=== PATIENT | female | born 1950 | race Caucasian/White ===

== ENCOUNTER 2024-09-24 20:04 | Inpatient (IN) | payer MEDICARE, MEDICAID ==
[~2024-09-24] VITALS: Ht 162.6 cm; Wt 78.0 kg
[2024-09-24] MEDS: LEVETIRACETAM 1000MG PREMIX 100 ML IV ONE (21:05)
[2024-09-24] MEDS: LORAZEPAM 2MG/ML INJ IV ONE (21:05)
[2024-09-24 21:54] LABS: BASOPHILS % 0.6 % (0.0-2.0); EOSINOPHILS % 0.3 % (0.0-5.0); HEMATOCRIT. 34.1 % (36.0-48.0); HEMOGLOBIN. 11.1 g/dL (12.0-16.0); LYMPHOCYTES % 14.1 % (20.0-50.0); MEAN CORPUSCULAR HEMOGLOBIN 28.8 pg (28.0-32.0); MEAN CORPUSCULAR HGB CONC 32.6 g/dL (31.0-37.0); MEAN CORPUSCULAR VOLUME 88.1 fL (81.0-99.0); MEAN PLATELET VOLUME 9.4 fl (7.4-10.4); MONOCYTES % 3.8 % (2.0-8.0); NEUTROPHILS % 81.2 % (40.0-76.0); PLATELET 314 x1000/uL (130-400); RED BLOOD CELL COUNT 3.87 mill/uL (4.2-5.4); RED CELL DISTRIBUTION WIDTH 13.8 % (11.6-14.6); WHITE BLOOD COUNT 10.2 x1000/uL (4.5-11.0)
[2024-09-24 22:03] LABS: CHLORIDE 101 mEq/L (98-107); POTASSIUM 3.4 mEq/L (3.5-5.1); SODIUM 134 mEq/L (136-145)
[2024-09-24 22:04] LABS: CALCIUM 8.8 mg/dL (8.7-10.4); CARBON DIOXIDE 23 mEq/L (21-32)
[2024-09-24 22:05] LABS: INR 1.1; PROTHROMBIN TIME 11.4 sec (9.6-11.0)
[2024-09-24 22:09] LABS: CREATININE 0.6 mg/dL (0.6-1.0); GLUCOSE 113 mg/dL (70-105); UREA NITROGEN BLOOD 8 mg/dL (9-23)
[2024-09-24 22:15] LABS: ETHANOL BLOOD < 10 mg/dL (<10); TROPONIN I HIGH SENSITIVITY 575 ng/L (3.0-34)
[2024-09-24] MEDS: CLOPIDOGREL 75MG TABLET PO ONE (22:40)
[2024-09-24] MEDS: ASPIRIN 325MG EC TABLET PO ONE (22:40)
[2024-09-24] MEDS: IOHEXOL-350 100 ML BOTTLE ONE (23:44)
[2024-09-25 05:31] LABS: CLARITY URINE CLEAR (CLEAR); COLOR URINE YELLOW (YELLOW); GLUCOSE URINE NEGATIVE (NEGATIVE); KETONES URINE NEGATIVE (NEGATIVE); LEUKOCYTE ESTERASE URINE NEGATIVE (NEGATIVE); NITRITE URINE NEGATIVE (NEGATIVE); OCCULT BLOOD URINE NEGATIVE (NEGATIVE); PH URINE 6.5 (4.5-8.0); PROTEIN URINE NEGATIVE (NEGATIVE); SPECIFIC GRAVITY URINE 1.014 (1.005-1.030); UROBILINOGEN URINE 0.2 E.U./dL (0.2-1.0)
[2024-09-25 07:02] LABS: *AMPHETAMINES SCREEN URINE NEGATIVE (NEGATIVE); *BARBITURATES SCREEN URINE NEGATIVE (NEGATIVE); *BENZODIAZEPINES SCREEN URINE NEGATIVE (NEGATIVE); *COCAINE SCREEN URINE NEGATIVE (NEGATIVE); CANNABINOID URINE SCREEN NEGATIVE (NEGATIVE); METHADONE URINE SCREEN NEGATIVE (NEGATIVE); OPIATES URINE SCREEN NEGATIVE (NEGATIVE); PHENCYCLIDINE URINE SCREEN NEGATIVE (NEGATIVE)
[2024-09-25 07:03] LABS: ECSTASY MDMA SCREEN URINE NEGATIVE (NEGATIVE)
[2024-09-25 08:00] VITALS: BP 122/65; PULSE 71; RESP 16; TEMP 36.1; O2SAT 97
[2024-09-25 09:31] VITALS: BP 122/65; PULSE 70; RESP 16; TEMP 36.1
[2024-09-25] MEDS ORDERED: ACETAMINOPHEN 325MG TABLET PO PRN (10:30)
[2024-09-25] MEDS ORDERED: CLONIDINE 0.1MG TABLET PO PRN (10:30)
[2024-09-25] MEDS ORDERED: IPRATROPIUM/ALBUTEROL 0.5-3(2.5)MG/3ML NEB HHN PRN (10:30)
[2024-09-25] MEDS ORDERED: METH2.5T MT (10:44)
[2024-09-25] MEDS ORDERED: IBUP-2029 PO (10:44)
[2024-09-25 12:00] VITALS: BP 127/70; PULSE 77; RESP 20; TEMP 36.7; O2SAT 98
[2024-09-25 13:22] LABS: BASOPHILS % 0.6 % (0.0-2.0); EOSINOPHILS % 1.4 % (0.0-5.0); HEMATOCRIT. 36.8 % (36.0-48.0); HEMOGLOBIN. 12.1 g/dL (12.0-16.0); LYMPHOCYTES % 16.9 % (20.0-50.0); MEAN CORPUSCULAR HEMOGLOBIN 28.4 pg (28.0-32.0); MEAN CORPUSCULAR HGB CONC 32.8 g/dL (31.0-37.0); MEAN CORPUSCULAR VOLUME 86.8 fL (81.0-99.0); MEAN PLATELET VOLUME 9.4 fl (7.4-10.4); MONOCYTES % 5.5 % (2.0-8.0); NEUTROPHILS % 75.6 % (40.0-76.0); PLATELET 325 x1000/uL (130-400); RED BLOOD CELL COUNT 4.25 mill/uL (4.2-5.4); RED CELL DISTRIBUTION WIDTH 13.9 % (11.6-14.6); WHITE BLOOD COUNT 8.6 x1000/uL (4.5-11.0)
[2024-09-25] MEDS: ASPIRIN 81MG TABLET PO SCH (13:38)
[2024-09-25] MEDS: ENOXAPARIN 40MG/0.4ML SYR SUBCUT SCH (13:40)
[2024-09-25] MEDS: CLOPIDOGREL 75MG TABLET PO SCH (13:41)
[2024-09-25 13:43] LABS: CARBON DIOXIDE 27 mEq/L (21-32); CHLORIDE 103 mEq/L (98-107); POTASSIUM 3.8 mEq/L (3.5-5.1); SODIUM 139 mEq/L (136-145)
[2024-09-25 13:48] LABS: CREATININE 0.6 mg/dL (0.6-1.0); GLUCOSE 113 mg/dL (70-105); THYROID STIMULATING HORMONE 1.62 uIU/mL (0.55-4.78)
[2024-09-25 13:49] LABS: LDL CHOLESTEROL 97 mg/dL (5-100); TRIGLYCERIDE 64 mg/dL (0-150); UREA NITROGEN BLOOD 9 mg/dL (9-23)
[2024-09-25 13:50] LABS: CHOLESTEROL 140 mg/dL (<200)
[2024-09-25 13:51] LABS: HDL CHOLESTEROL 31 mg/dL (>65)
[2024-09-25 14:00] LABS: HEPATITIS B SURFACE ANTIGEN NEGATIVE (Negative)
[2024-09-25 14:22] LABS: HEPATITIS C AB NON REACTIVE (Neg) (Negative)
[2024-09-25] MEDS: LEVETIRACETAM 500MG/5ML CUP PO SCH (14:42)
[2024-09-25 16:00] VITALS: BP 138/86; PULSE 80; RESP 20; TEMP 37; O2SAT 91
[2024-09-25 17:08] LABS: TROPONIN I HIGH SENSITIVITY 925 ng/L (3.0-34)
[2024-09-25 20:00] VITALS: BP 105/58; PULSE 87; RESP 18; TEMP 36.6; O2SAT 98
[2024-09-25] MEDS: ATORVASTATIN CALCIUM 40MG TABLET PO SCH (21:12)
[2024-09-25] MEDS: HYDROCODONE/ACETAMINOPHEN 5/325MG TABLET PO PRN (21:13)
[2024-09-25 23:51] VITALS: BP 107/51; PULSE 74; RESP 18; TEMP 37; O2SAT 99
[2024-09-26 00:39] LABS: TROPONIN I HIGH SENSITIVITY 717 ng/L (3.0-34)
[2024-09-26 04:00] VITALS: BP 123/61; PULSE 76; RESP 18; TEMP 36.9; O2SAT 96
[2024-09-26] MEDS: LORAZEPAM 0.5MG TABLET PO PRN (04:26)
[2024-09-26 05:18] LABS: BASOPHILS % 0.5 % (0.0-2.0); EOSINOPHILS % 0.7 % (0.0-5.0); HEMATOCRIT. 34.2 % (36.0-48.0); HEMOGLOBIN. 11.4 g/dL (12.0-16.0); LYMPHOCYTES % 20.7 % (20.0-50.0); MEAN CORPUSCULAR HEMOGLOBIN 29.4 pg (28.0-32.0); MEAN CORPUSCULAR HGB CONC 33.2 g/dL (31.0-37.0); MEAN CORPUSCULAR VOLUME 88.4 fL (81.0-99.0); MEAN PLATELET VOLUME 9.7 fl (7.4-10.4); MONOCYTES % 5.9 % (2.0-8.0); NEUTROPHILS % 72.2 % (40.0-76.0); PLATELET 315 x1000/uL (130-400); RED BLOOD CELL COUNT 3.86 mill/uL (4.2-5.4); RED CELL DISTRIBUTION WIDTH 13.9 % (11.6-14.6)
[2024-09-26 05:35] LABS: CALCIUM 8.9 mg/dL (8.7-10.4); CHLORIDE 99 mEq/L (98-107); SODIUM 134 mEq/L (136-145)
[2024-09-26 05:36] LABS: CARBON DIOXIDE 24 mEq/L (21-32)
[2024-09-26 05:41] LABS: CREATININE 0.6 mg/dL (0.6-1.0); GLUCOSE 107 mg/dL (70-105); UREA NITROGEN BLOOD 9 mg/dL (9-23)
[2024-09-26 09:12] VITALS: BP 111/61; PULSE 77; RESP 18; TEMP 36.6; O2SAT 96
[2024-09-26] MEDS: IBUPROFEN 600MG TABLET PO PRN (09:49)
[2024-09-26 12:00] VITALS: BP 123/60; PULSE 73; RESP 20; TEMP 37.1; O2SAT 91
[2024-09-26 16:00] VITALS: BP 128/68; PULSE 73; RESP 20; TEMP 36.6; O2SAT 97
[2024-09-26] MEDS: NAPROXEN 375MG TABLET PO PRN (18:39)
[2024-09-26 19:47] VITALS: BP 103/73; PULSE 78; RESP 18; TEMP 36.4; O2SAT 98
[2024-09-26] MEDS: LEVETIRACETAM 500MG/5ML CUP PO SCH (21:12)
[2024-09-27] VITALS: BP 126/58; PULSE 76; RESP 19; TEMP 36.2; O2SAT 97
[2024-09-27 04:00] VITALS: BP 117/57; PULSE 70; RESP 19; TEMP 36.5; O2SAT 96
[2024-09-27 08:27] VITALS: BP 115/59; PULSE 73; RESP 20; TEMP 36.1; O2SAT 97
[2024-09-27 12:29] VITALS: BP 119/89; PULSE 97; RESP 18; TEMP 37.2; O2SAT 95
[2024-09-27] MEDS ORDERED: DIPHENHYDRAMINE 50MG/ML INJ IM ONE (13:30)
[2024-09-27] MEDS: DIPHENHYDRAMINE 50MG/ML VIAL IV NR (14:17)
[2024-09-27 16:22] VITALS: BP 125/62; PULSE 83; RESP 18; TEMP 36.6; O2SAT 96
[2024-09-27] MEDS: LACTULOSE 20G/30ML UDC PO NR (19:00)
[2024-09-27 20:00] VITALS: BP 133/59; PULSE 90; RESP 20; TEMP 36.8; O2SAT 98
[2024-09-27] MEDS: LACOSAMIDE 100MG TABLET PO SCH (20:05)
[2024-09-28] VITALS: BP 109/56; PULSE 78; RESP 18; TEMP 36.9; O2SAT 97
[2024-09-28 04:00] VITALS: BP 123/59; PULSE 67; RESP 18; TEMP 36.9; O2SAT 98
[2024-09-28 08:00] VITALS: BP 138/79; PULSE 86; RESP 20; TEMP 36.6; O2SAT 95
[2024-09-28] MEDS: DOCUSATE SODIUM 250MG CAPSULE PO SCH (09:32)
[2024-09-28 12:00] VITALS: BP 96/69; PULSE 86; RESP 18; TEMP 36; O2SAT 100
[2024-09-28] MEDS ORDERED: LEVETIRACETAM 1000MG PREMIX 100 ML IV SCH (18:30)
[2024-09-28] MEDS ORDERED: LACOSAMIDE 100MG/10ML ORAL SOLN GT SCH (19:30)
[2024-09-28 20:00] VITALS: BP 118/60; PULSE 83; RESP 20; TEMP 37.6; O2SAT 96
[2024-09-28] MEDS ORDERED: LEVETIRACETAM 1,500MG in NACL 100ML PREMIX IV SCH (21:00)
[2024-09-28] MEDS: LEVETIRACETAM 1000MG PREMIX 100 ML IV SCH (21:14)
[2024-09-28] MEDS: SODIUM CHLORIDE 0.9% IV SCH (22:05)
[2024-09-28] MEDS: LACOSAMIDE IV SCH (22:05)
[2024-09-29] VITALS: BP 121/64; PULSE 74; RESP 20; TEMP 36.9; O2SAT 95
[2024-09-29 02:37] LABS: CREATINE KINASE 130 IU/L (34-145)
[2024-09-29 04:00] VITALS: BP 114/54; PULSE 70; RESP 20; TEMP 37.1; O2SAT 98
[2024-09-29 08:00] VITALS: BP_SYST 100; BP_SYST 125; BP_DIAS 68; BP_DIAS 84; PULSE 60; PULSE 76; RESP 17; RESP 22; TEMP 35.8; TEMP 36.4; O2SAT 97; O2SAT 99
[2024-09-29] MEDS ORDERED: LEVETIRACETAM 1000MG PREMIX 100 ML IV SCH ×2 (09:00→09:15)
[2024-09-29 12:00] VITALS: BP 124/79; PULSE 77; RESP 17; TEMP 37.1; O2SAT 96
[2024-09-29] MEDS: DOCUSATE SODIUM 100MG CAPSULE PO PRN (15:36)
[2024-09-29 16:00] VITALS: BP 106/75; PULSE 70; RESP 17; TEMP 36.4; O2SAT 100
[2024-09-29] MEDS ORDERED: NALOXONE HCL 0.4MG/ML VIAL IV PRN (18:45)
[2024-09-29 20:00] VITALS: BP 123/58; PULSE 70; RESP 18; TEMP 36.9; O2SAT 95
[2024-09-29 21:26] LABS: CHLORIDE 99 mEq/L (98-107); POTASSIUM 3.7 mEq/L (3.5-5.1); SODIUM 137 mEq/L (136-145)
[2024-09-29 21:27] LABS: CALCIUM 8.9 mg/dL (8.7-10.4); CARBON DIOXIDE 26 mEq/L (21-32)
[2024-09-29 21:32] LABS: CREATININE 0.5 mg/dL (0.6-1.0); GLUCOSE 112 mg/dL (70-105)
[2024-09-29 21:33] LABS: ALANINE AMINOTRANSFERASE 17 IU/L (10-49); ALBUMIN 3.7 g/dL (3.2-4.8); ASPARTATE AMINOTRANSFERASE 21 IU/L (<34); CREATINE KINASE 99 IU/L (34-145); UREA NITROGEN BLOOD 13 mg/dL (9-23)
[2024-09-29 21:35] LABS: BILIRUBIN TOTAL 0.3 mg/dL (0.1-1.0); PROTEIN TOTAL 7.3 g/dL (6.0-8.3)
[2024-09-29 21:38] LABS: BASOPHILS % 0.5 % (0.0-2.0); HEMATOCRIT. 32.6 % (36.0-48.0); HEMOGLOBIN. 10.9 g/dL (12.0-16.0); LYMPHOCYTES % 20.5 % (20.0-50.0); MEAN CORPUSCULAR HEMOGLOBIN 29.3 pg (28.0-32.0); MEAN CORPUSCULAR HGB CONC 33.4 g/dL (31.0-37.0); MEAN CORPUSCULAR VOLUME 87.7 fL (81.0-99.0); MEAN PLATELET VOLUME 9.6 fl (7.4-10.4); MONOCYTES % 8.3 % (2.0-8.0); NEUTROPHILS % 68.7 % (40.0-76.0); PLATELET 359 x1000/uL (130-400); RED BLOOD CELL COUNT 3.72 mill/uL (4.2-5.4); WHITE BLOOD COUNT 10.4 x1000/uL (4.5-11.0)
[2024-09-30] VITALS (7 sets, daily range): BP systolic 105–130; BP diastolic 48–77; PULSE 70–78; RESP 18–20; TEMP 36.4–36.8; O2SAT 94–100
[2024-09-30] MEDS: BISACODYL 5MG TABLET PO PRN (06:33)
[2024-09-30] MEDS: IPRATROPIUM/ALBUTEROL 0.5-3(2.5)MG/3ML NEB HHN PRN (11:52)
[2024-09-30] MEDS: CITALOPRAM HYDROBROMIDE 10MG TABLET PO SCH (19:02)
[2024-09-30] MEDS: AMPICILLIN 2,000 MG in SODIUM CHLORIDE 0.9% 100 ML IV SCH (20:17)
[2024-09-30] MEDS: LACOSAMIDE 100MG TABLET PO SCH (21:05)
[2024-09-30] MEDS: CEFTRIAXONE 2GM/50ML 50 ML IV SCH (21:41)
[2024-09-30] MEDS: VANCOMYCIN 1.25GM/250ML IV NR (22:10)
[2024-09-30] MEDS: ONDANSETRON HCL 4MG/2ML INJ IV PRN (22:14)
[2024-10-01] VITALS (7 sets, daily range): BP systolic 110–127; BP diastolic 50–73; PULSE 62–84; RESP 18–20; TEMP 36.4–37; O2SAT 95–100
[2024-10-01] MEDS: VANCOMYCIN 500MG PREMIX 100 ML IV SCH (10:54)
[2024-10-01] MEDS: MORPHINE SULFATE 4 MG/ML INJ (FOR IV/IM USE) IV PRN (11:13)
[2024-10-01] MEDS: LACOSAMIDE 100MG TABLET PO SCH (20:27)
[2024-10-01] MEDS: LEVETIRACETAM 1500MG PREMIX 100 ML IV SCH ×2 (21:24→21:48)
[2024-10-02] VITALS: BP 115/50; PULSE 69; RESP 20; TEMP 36.7; O2SAT 97
[2024-10-02 04:00] VITALS: BP 136/53; PULSE 73; RESP 20; TEMP 36.8; O2SAT 97
[2024-10-02 08:00] VITALS: BP 121/61; PULSE 65; RESP 18; TEMP 36.6; O2SAT 94
[2024-10-02 12:00] VITALS: BP 117/63; PULSE 69; RESP 18; TEMP 36.6; O2SAT 97
[2024-10-02 16:00] VITALS: BP 120/67; PULSE 71; RESP 20; TEMP 36.6; O2SAT 98
[2024-10-02 20:00] VITALS: BP 107/42; PULSE 66; RESP 20; TEMP 37.1; O2SAT 97
[2024-10-03] VITALS: BP 113/57; PULSE 60; RESP 20; TEMP 36.7; O2SAT 97
[2024-10-03 04:00] VITALS: BP_SYST 115; BP_SYST 123; BP_DIAS 58; BP_DIAS 66; PULSE 66; PULSE 88; RESP 20; TEMP 37; TEMP 37.1; O2SAT 97
[2024-10-03 07:52] LABS: CARBON DIOXIDE 22 mEq/L (21-32); CHLORIDE 103 mEq/L (98-107); SODIUM 138 mEq/L (136-145)
[2024-10-03 07:53] LABS: CALCIUM 8.4 mg/dL (8.7-10.4)
[2024-10-03 07:58] LABS: CREATININE 0.5 mg/dL (0.6-1.0); GLUCOSE 86 mg/dL (70-105); UREA NITROGEN BLOOD 8 mg/dL (9-23)
[2024-10-03 08:00] VITALS: BP 113/55; PULSE 64; RESP 18; TEMP 36.5; O2SAT 99
[2024-10-03 12:00] VITALS: BP 120/59; PULSE 67; RESP 20; TEMP 36.7; O2SAT 99
[2024-10-03 16:00] VITALS: BP 115/69; PULSE 74; RESP 18; TEMP 36.7; O2SAT 100
[2024-10-03] MEDS: ACETAMINOPHEN 325MG TABLET PO PRN (18:04)
[2024-10-03 20:00] VITALS: BP 123/57; PULSE 65; RESP 19; TEMP 36.9; O2SAT 98
[2024-10-03] MEDS: VANCOMYCIN 750MG/150ML (BAXTER) IV SCH (23:58)
[2024-10-04] VITALS: BP 109/70; PULSE 80; RESP 19; TEMP 36.9; O2SAT 98
[2024-10-04 04:00] VITALS: BP 122/59; PULSE 62; RESP 19; TEMP 36.3; O2SAT 99
[2024-10-04 08:00] VITALS: BP 127/53; PULSE 84; RESP 18; TEMP 36.3; O2SAT 99
[2024-10-04 12:00] VITALS: BP 120/56; PULSE 71; RESP 20; TEMP 36.4; O2SAT 100
[2024-10-04 16:00] VITALS: BP 125/64; PULSE 68; RESP 20; TEMP 36.4; O2SAT 99
[2024-10-04 20:00] VITALS: BP 115/58; PULSE 66; RESP 20; TEMP 37; O2SAT 97
[2024-10-05] VITALS: BP 116/59; PULSE 60; RESP 20; TEMP 36.6; O2SAT 97
[2024-10-05 04:00] VITALS: BP 114/53; PULSE 68; RESP 20; TEMP 36.8; O2SAT 98
[2024-10-05 07:02] LABS: BASOPHILS % 0.7 % (0.0-2.0); EOSINOPHILS % 4.1 % (0.0-5.0); HEMATOCRIT. 31.7 % (36.0-48.0); HEMOGLOBIN. 10.7 g/dL (12.0-16.0); LYMPHOCYTES % 23.3 % (20.0-50.0); MEAN CORPUSCULAR HEMOGLOBIN 28.9 pg (28.0-32.0); MEAN CORPUSCULAR HGB CONC 33.7 g/dL (31.0-37.0); MEAN CORPUSCULAR VOLUME 85.9 fL (81.0-99.0); MEAN PLATELET VOLUME 9.2 fl (7.4-10.4); MONOCYTES % 6.6 % (2.0-8.0); NEUTROPHILS % 65.3 % (40.0-76.0); PLATELET 345 x1000/uL (130-400); RED CELL DISTRIBUTION WIDTH 13.8 % (11.6-14.6); WHITE BLOOD COUNT 8.1 x1000/uL (4.5-11.0)
[2024-10-05 07:10] LABS: CHLORIDE 107 mEq/L (98-107); POTASSIUM 3.3 mEq/L (3.5-5.1); SODIUM 141 mEq/L (136-145)
[2024-10-05 07:11] LABS: CALCIUM 8.3 mg/dL (8.7-10.4); CARBON DIOXIDE 26 mEq/L (21-32)
[2024-10-05 07:16] LABS: CREATININE 0.4 mg/dL (0.6-1.0); GLUCOSE 104 mg/dL (70-105)
[2024-10-05 07:31] LABS: UREA NITROGEN BLOOD < 5 mg/dL (9-23)
[2024-10-05 08:41] VITALS: BP 136/56; PULSE 68; RESP 20; TEMP 36.6; O2SAT 96
[2024-10-05 13:08] VITALS: BP 131/81; PULSE 65; RESP 20; TEMP 37.2; O2SAT 97
[2024-10-05 16:19] VITALS: BP 122/59; PULSE 66; RESP 20; TEMP 37.1; O2SAT 96
[2024-10-05] MEDS: POTASSIUM CHLORIDE 20MEQ TABLET SR PO NR (16:44)
[2024-10-05 20:00] VITALS: BP 90/57; PULSE 66; RESP 18; TEMP 36.7; O2SAT 97
[2024-10-06] VITALS (7 sets, daily range): BP systolic 105–128; BP diastolic 44–68; PULSE 55–65; RESP 18–20; TEMP 36.3–37.1; O2SAT 95–97
[2024-10-06] MEDS: LEVETIRACETAM 500MG/5ML CUP PO SCH (22:38)
[2024-10-07] VITALS: BP 124/56; PULSE 63; RESP 18; TEMP 36.5; O2SAT 97
[2024-10-07 04:00] VITALS: BP 156/66; PULSE 70; RESP 20; TEMP 36.7; O2SAT 99
[2024-10-07] MEDS ORDERED: LIDOCAINE HCL 1% 10 MG/ML 10ML VIAL ONE (07:41)
[2024-10-07 08:00] VITALS: BP 136/67; PULSE 65; TEMP 36.4; O2SAT 97
[2024-10-07 08:51] LABS: CSF TOTAL VOLUME 7.6 mL
[2024-10-07 09:25] LABS: GLUCOSE CSF 61 mg/dL (41-75)
[2024-10-07 11:34] LABS: CSF APPEARANCE CLEAR (CLEAR)
[2024-10-07 11:43] LABS: CSF WHITE BLOOD CELL 23 /cu mm (0-10)
[2024-10-07 12:00] VITALS: BP 125/64; PULSE 68; RESP 16; TEMP 37; O2SAT 98
[2024-10-07 16:00] VITALS: BP 115/58; PULSE 73; RESP 20; TEMP 36.9; O2SAT 97
[2024-10-07 20:00] VITALS: BP 109/51; PULSE 64; RESP 19; TEMP 36.2; O2SAT 99
[2024-10-08 00:21] VITALS: BP 150/69; PULSE 67; RESP 19; TEMP 36.1
[2024-10-08 04:52] VITALS: BP 118/53; PULSE 51; RESP 18; TEMP 36.2; O2SAT 97
[2024-10-08 08:00] VITALS: BP 102/48; PULSE 55; RESP 18; TEMP 36.3; O2SAT 95
[2024-10-08 12:00] VITALS: BP 110/56; PULSE 58; RESP 20; TEMP 36.4; O2SAT 96
[2024-10-08] MEDS: ACYCLOVIR INJ 750 MG in DEXT 5% WATER 100 ML IV SCH (14:34)
[2024-10-08 16:00] VITALS: BP 120/48; PULSE 60; RESP 20; TEMP 36.7; O2SAT 99
[2024-10-08 20:00] VITALS: BP 118/59; PULSE 66; RESP 20; TEMP 35.8; O2SAT 97
[2024-10-09] VITALS: BP 137/71; PULSE 64; RESP 19; TEMP 36.3; O2SAT 96
[2024-10-09 04:00] VITALS: BP 122/60; PULSE 68; RESP 19; TEMP 36.3; O2SAT 98
[2024-10-09] MEDS: ACYCLOVIR INJ 550 MG in DEXT 5% WATER 100 ML IV SCH (06:00)
[2024-10-09 08:00] VITALS: BP 141/65; PULSE 67; RESP 20; TEMP 36.6; O2SAT 96
[2024-10-09] MEDS: GADOTERATE MEGLUMINE 5 MMOL/10 ML VIAL IV ONE (09:27)
[2024-10-09 12:00] VITALS: BP 96/48; PULSE 70; RESP 18; TEMP 36.9; O2SAT 96
[2024-10-09 16:00] VITALS: BP 101/69; PULSE 97; RESP 20; TEMP 36.8; O2SAT 100
[2024-10-09 19:52] VITALS: BP 119/54; PULSE 72; RESP 18; TEMP 36.6; O2SAT 94
[2024-10-09] MEDS: LACTULOSE 20G/30ML UDC PO PRN (22:02)
[2024-10-10] VITALS (7 sets, daily range): BP systolic 109–138; BP diastolic 54–81; PULSE 52–88; RESP 18–19; TEMP 36.4–36.8; O2SAT 95–100
[2024-10-10] MEDS: NYSTATIN POWDER 15GM TOP SCH (13:54)
[2024-10-11 04:06] VITALS: BP 117/73; PULSE 78; RESP 19; TEMP 36.4; O2SAT 97
[2024-10-11] MEDS ORDERED: LIDOCAINE HCL 1% 10 MG/ML 10ML VIAL ONE ×2 (07:15→13:36)
[2024-10-11 08:16] VITALS: BP 122/79; PULSE 80; RESP 18; TEMP 36.9; O2SAT 97
[2024-10-11 12:03] VITALS: BP 126/62; PULSE 65; RESP 19; TEMP 36.9; O2SAT 96
[2024-10-11 16:27] VITALS: BP 140/68; PULSE 68; RESP 18; TEMP 36.6; O2SAT 99
[2024-10-11 17:58] VITALS: BP 128/87; PULSE 69; TEMP 97.9; O2SAT 98
[2024-10-11 20:00] VITALS: BP 130/62; PULSE 68; RESP 17; TEMP 36.3; O2SAT 98
[2024-10-11] MEDS: VANCOMYCIN 750MG PMX (XELLIA) 150 ML IV SCH (21:05)
== END 2024-10-11 22:53 | DRG 64 ==
LOC: ER 20:04 → 7WST 22:23
PROVIDERS: ADMIT Internal Medicine; ATTEND Internal Medicine
PROC: 4A00X4Z Measurement of Central Nervous Electrical Activity, External Approach (ICD-10-PCS; 2024-09-26)
PROC: 4A00X4Z Measurement of Central Nervous Electrical Activity, External Approach (ICD-10-PCS; 2024-10-01)
PROC: 009U3ZX Drainage of Spinal Canal, Percutaneous Approach, Diagnostic (ICD-10-PCS; 2024-10-07)
PROC: B01B1ZZ Fluoroscopy of Spinal Cord using Low Osmolar Contrast (ICD-10-PCS; 2024-10-07)
PROC: 02HV33Z Insertion of Infusion Device into Superior Vena Cava, Percutaneous Approach (ICD-10-PCS; principal; 2024-10-11)
PROC: B548ZZA Ultrasonography of Superior Vena Cava, Guidance (ICD-10-PCS; 2024-10-11)
DX: I63.9 Cerebral infarction, unspecified (principal); I21.A1 Myocardial infarction type 2; G81.91 Hemiplegia, unspecified affecting right dominant side; I10 Essential (primary) hypertension; D64.9 Anemia, unspecified; G24.9 Dystonia, unspecified; Z96.653 Presence of artificial knee joint, bilateral; E87.6 Hypokalemia; B37.9 Candidiasis, unspecified; G40.901 Epilepsy, unspecified, not intractable, with status epilepticus; M54.9 Dorsalgia, unspecified; D72.829 Elevated white blood cell count, unspecified; R32 Unspecified urinary incontinence; Z79.899 Other long term (current) drug therapy; Z79.82 Long term (current) use of aspirin; Z79.02 Long term (current) use of antithrombotics/antiplatelets; M06.9 Rheumatoid arthritis, unspecified
CPT/HCPCS: 36415; 36573; 62328; 70496; 70498; 70544; 70551; 70552; 71045; 72141; 72146; 72148; 80048; 80053; 80061; 80202; 80305; 80320; 80339; 81003; 82542; 82550; 82945; 82962; 83036; 83880; 84145; 84157; 84443; 84484; 85025; 86635; 86705; 87070; 87340; 87529; 87899; 93005; 93306; 93971; 94070; 94640; 94664; 95816; 97110; 97112; 97163; 97166; 97530; 99291; A4606; A9577; C1725; C1893; J0133; J0290; J0696; J1200; J1650; J1953; J2003; J2060; J2270; J2405; J3370; J7050; J7060; Q9967; G0480

== ENCOUNTER 2024-12-25 00:39 | Inpatient (IN) | payer MEDICARE, MEDICAID ==
[~2024-12-25] VITALS: Ht 160 cm; Wt 89.8 kg
[2024-12-25] VITALS (7 sets, daily range): BP systolic 105–145; BP diastolic 60–75; PULSE 64–78; RESP 18–20; TEMP 36.1–36.8; O2SAT 97–100
[~2024-12-25 00:39] MED LIST: IBUP-2029 PO; METH2.5T MT
[2024-12-25] MEDS ORDERED: LORAZEPAM 2MG/ML INJ IV ONE ×2 (01:00→02:15)
[2024-12-25] MEDS: LORAZEPAM 2MG/ML UD SYRINGE IV NR ×2 (01:18→02:20)
[2024-12-25] MEDS: LEVETIRACETAM 500MG PREMIX 100 ML IV ONE ×2 (01:28→02:20)
[2024-12-25] MEDS: LABETALOL 5MG/ML 4ML INJ IV ONE (02:06)
[2024-12-25 02:09] LABS: BASOPHILS % 0.9 % (0.0-2.0); CHLORIDE 104 mEq/L (98-107); EOSINOPHILS % 1.7 % (0.0-5.0); HEMATOCRIT. 33.6 % (36.0-48.0); HEMOGLOBIN. 11.3 g/dL (12.0-16.0); LYMPHOCYTES % 23.5 % (20.0-50.0); MEAN CORPUSCULAR HEMOGLOBIN 28.7 pg (28.0-32.0); MEAN CORPUSCULAR HGB CONC 33.5 g/dL (31.0-37.0); MEAN CORPUSCULAR VOLUME 85.6 fL (81.0-99.0); MEAN PLATELET VOLUME 9.1 fl (7.4-10.4); MONOCYTES % 7.3 % (2.0-8.0); NEUTROPHILS % 66.6 % (40.0-76.0); PLATELET 428 x1000/uL (130-400); POTASSIUM 4.5 mEq/L (3.5-5.1); RED BLOOD CELL COUNT 3.92 mill/uL (4.2-5.4); RED CELL DISTRIBUTION WIDTH 13.8 % (11.6-14.6); SODIUM 137 mEq/L (136-145); WHITE BLOOD COUNT 11.7 x1000/uL (4.5-11.0)
[2024-12-25 02:10] LABS: CALCIUM 8.9 mg/dL (8.7-10.4); CARBON DIOXIDE 24 mEq/L (21-32)
[2024-12-25 02:15] LABS: CREATININE 0.6 mg/dL (0.6-1.0); ETHANOL BLOOD < 10 mg/dL (<10); GLUCOSE 98 mg/dL (70-105); INR 1.1; PROTHROMBIN TIME 11.4 sec (9.6-11.0); UREA NITROGEN BLOOD 17 mg/dL (9-23)
[2024-12-25 02:17] LABS: CREATINE KINASE 45 IU/L (34-145)
[2024-12-25] MEDS: IOHEXOL-350 100 ML BOTTLE ONE (02:19)
[2024-12-25 02:59] LABS: TROPONIN I HIGH SENSITIVITY 23 ng/L (3.0-34)
[2024-12-25] MEDS ORDERED: HYDROCODONE/ACETAMINOPHEN 5/325MG TABLET PO PRN (05:00)
[2024-12-25] MEDS ORDERED: ZOLPIDEM TARTRATE 5MG TABLET PO PRN (05:00)
[2024-12-25] MEDS ORDERED: ONDANSETRON HCL 4MG/2ML INJ IV PRN (05:00)
[2024-12-25] MEDS ORDERED: MORPHINE SULFATE 2 MG/ML INJ (NOT FOR IM USE) IV PRN (05:00)
[2024-12-25] MEDS ORDERED: LACO150T4 PO (05:02)
[2024-12-25] MEDS ORDERED: LEVE100023 PO (05:02)
[2024-12-25] MEDS ORDERED: ATOR-2 PO (05:02)
[2024-12-25] MEDS: SODIUM CHLORIDE 0.9% 1,000 ML IV SCH (05:31)
[2024-12-25] MEDS ORDERED: NALOXONE HCL 0.4MG/ML VIAL IV PRN (07:15)
[2024-12-25] MEDS ORDERED: LEVETIRACETAM 1,000MG in NACL 100ML PREMIX IV SCH (09:00)
[2024-12-25] MEDS: PANTOPRAZOLE SODIUM 40 MG/VIAL IV SCH (09:22)
[2024-12-25] MEDS: ENOXAPARIN 40MG/0.4ML SYR SUBCUT SCH (09:22)
[2024-12-25] MEDS: LEVETIRACETAM 1000MG PREMIX 100 ML IV SCH (09:23)
[2024-12-25] MEDS: LACOSAMIDE 100MG/10ML ORAL SOLN PO SCH (10:38)
[2024-12-25] MEDS: ACETAMINOPHEN 325MG TABLET PO PRN (10:38)
[2024-12-25] MEDS: LORAZEPAM 2MG/ML UD SYRINGE IV PRN (17:15)
[2024-12-25] MEDS: ATORVASTATIN CALCIUM 40MG TABLET PO SCH (21:05)
[2024-12-26 04:00] VITALS: BP 157/98; PULSE 89; RESP 18; TEMP 36.9; O2SAT 97
[2024-12-26 07:11] LABS: BASOPHILS % 0.7 % (0.0-2.0); EOSINOPHILS % 0.7 % (0.0-5.0); HEMOGLOBIN. 10.8 g/dL (12.0-16.0); LYMPHOCYTES % 17.8 % (20.0-50.0); MEAN CORPUSCULAR HEMOGLOBIN 28.9 pg (28.0-32.0); MEAN CORPUSCULAR HGB CONC 33.6 g/dL (31.0-37.0); MEAN PLATELET VOLUME 8.7 fl (7.4-10.4); MONOCYTES % 6.3 % (2.0-8.0); NEUTROPHILS % 74.5 % (40.0-76.0); PLATELET 390 x1000/uL (130-400); RED BLOOD CELL COUNT 3.73 mill/uL (4.2-5.4); RED CELL DISTRIBUTION WIDTH 13.8 % (11.6-14.6); WHITE BLOOD COUNT 8.3 x1000/uL (4.5-11.0)
[2024-12-26 07:48] LABS: CHLORIDE 106 mEq/L (98-107); POTASSIUM 3.7 mEq/L (3.5-5.1); SODIUM 139 mEq/L (136-145)
[2024-12-26 07:49] LABS: CALCIUM 8.5 mg/dL (8.7-10.4)
[2024-12-26 07:54] LABS: CREATININE 0.5 mg/dL (0.6-1.0); GLUCOSE 114 mg/dL (70-105); TRIGLYCERIDE 67 mg/dL (0-150); UREA NITROGEN BLOOD 6 mg/dL (9-23)
[2024-12-26 07:55] LABS: LDL CHOLESTEROL 52 mg/dL (5-100)
[2024-12-26 07:56] LABS: CHOLESTEROL 89 mg/dL (<200); HDL CHOLESTEROL 25 mg/dL (>65)
[2024-12-26 08:00] VITALS: BP 132/74; PULSE 81; RESP 18; TEMP 36.5; O2SAT 98
[2024-12-26 08:15] LABS: CARBON DIOXIDE 23 mEq/L (21-32)
[2024-12-26] MEDS: ASPIRIN 81MG EC TABLET PO SCH (09:26)
[2024-12-26 12:00] VITALS: BP 131/85; PULSE 87; RESP 20; TEMP 36.7; O2SAT 99
[2024-12-26 16:00] VITALS: BP 153/69; PULSE 69; RESP 18; TEMP 36.7; O2SAT 99
[2024-12-26 20:00] VITALS: BP 138/78; PULSE 101; RESP 20; TEMP 37.1; O2SAT 99
[2024-12-27 04:00] VITALS: BP 120/61; PULSE 84; RESP 19; TEMP 37.9; O2SAT 99
[2024-12-27 08:00] VITALS: BP 122/69; PULSE 86; RESP 16; TEMP 36.6; O2SAT 96
[2024-12-27 08:07] LABS: BASOPHILS % 0.7 % (0.0-2.0); EOSINOPHILS % 2.4 % (0.0-5.0); HEMATOCRIT. 31.3 % (36.0-48.0); HEMOGLOBIN. 10.5 g/dL (12.0-16.0); MEAN CORPUSCULAR HEMOGLOBIN 28.9 pg (28.0-32.0); MEAN CORPUSCULAR HGB CONC 33.7 g/dL (31.0-37.0); MEAN CORPUSCULAR VOLUME 85.8 fL (81.0-99.0); MEAN PLATELET VOLUME 8.7 fl (7.4-10.4); MONOCYTES % 8.5 % (2.0-8.0); NEUTROPHILS % 67.4 % (40.0-76.0); PLATELET 355 x1000/uL (130-400); RED BLOOD CELL COUNT 3.65 mill/uL (4.2-5.4); RED CELL DISTRIBUTION WIDTH 13.8 % (11.6-14.6); WHITE BLOOD COUNT 8.5 x1000/uL (4.5-11.0)
[2024-12-27 09:02] LABS: CALCIUM 8.6 mg/dL (8.7-10.4); CARBON DIOXIDE 25 mEq/L (21-32); CHLORIDE 106 mEq/L (98-107); POTASSIUM 3.7 mEq/L (3.5-5.1); SODIUM 139 mEq/L (136-145)
[2024-12-27 09:07] LABS: CREATININE 0.5 mg/dL (0.6-1.0); GLUCOSE 95 mg/dL (70-105); UREA NITROGEN BLOOD 6 mg/dL (9-23)
[2024-12-27 12:00] VITALS: BP 90/48; PULSE 56; RESP 16; TEMP 36.3; O2SAT 96
[2024-12-27 16:00] VITALS: BP 104/48; PULSE 65; RESP 18; TEMP 36.3; O2SAT 97
[2024-12-27 20:46] VITALS: BP 193/127; PULSE 69; RESP 16; TEMP 36.7; O2SAT 97
[2024-12-27] MEDS: CLONIDINE 0.1MG TABLET PO PRN (20:57)
[2024-12-27] MEDS ORDERED: LEVETIRACETAM 5MG/ML SYR IV SCH (21:00)
[2024-12-27] MEDS ORDERED: LEVETIRACETAM 1500MG PREMIX 100 ML IV SCH ×2 (21:00→21:15)
[2024-12-27] MEDS: LEVETIRACETAM 1500MG PREMIX 100 ML IV SCH ×2 (21:05→21:47)
[2024-12-27] MEDS: LACOSAMIDE 100MG TABLET PO SCH (21:06)
[2024-12-27 22:00] VITALS: BP 103/52
[2024-12-28] VITALS: BP 81/58; PULSE 64; RESP 16; TEMP 36.4; O2SAT 98
[2024-12-28 04:00] VITALS: BP 101/50; PULSE 90; RESP 20; TEMP 36.6; O2SAT 99
[2024-12-28 06:19] LABS: BASOPHILS % 0.6 % (0.0-2.0); EOSINOPHILS % 3.8 % (0.0-5.0); HEMATOCRIT. 29.7 % (36.0-48.0); LYMPHOCYTES % 20.6 % (20.0-50.0); MEAN CORPUSCULAR HEMOGLOBIN 29.1 pg (28.0-32.0); MEAN CORPUSCULAR HGB CONC 33.7 g/dL (31.0-37.0); MEAN CORPUSCULAR VOLUME 86.1 fL (81.0-99.0); MEAN PLATELET VOLUME 9.1 fl (7.4-10.4); PLATELET 343 x1000/uL (130-400); RED BLOOD CELL COUNT 3.44 mill/uL (4.2-5.4); RED CELL DISTRIBUTION WIDTH 13.7 % (11.6-14.6); WHITE BLOOD COUNT 8.8 x1000/uL (4.5-11.0)
[2024-12-28 06:36] LABS: CARBON DIOXIDE 26 mEq/L (21-32); CHLORIDE 108 mEq/L (98-107); POTASSIUM 3.6 mEq/L (3.5-5.1); SODIUM 142 mEq/L (136-145)
[2024-12-28 06:37] LABS: CALCIUM 8.5 mg/dL (8.7-10.4)
[2024-12-28 06:41] LABS: CREATININE 0.5 mg/dL (0.6-1.0)
[2024-12-28 06:42] LABS: GLUCOSE 106 mg/dL (70-105); UREA NITROGEN BLOOD 8 mg/dL (9-23)
[2024-12-28 08:45] VITALS: BP 154/79; PULSE 83; RESP 18; TEMP 36.7; O2SAT 98
[2024-12-28] MEDS: AMLODIPINE 5MG TABLET PO SCH (09:00)
[2024-12-28 11:39] VITALS: BP 113/48; PULSE 62; RESP 16; TEMP 36.4; O2SAT 98
[2024-12-28 15:48] VITALS: BP 121/69; PULSE 82; RESP 19; TEMP 36.9; O2SAT 97
[2024-12-28] MEDS: MORPHINE SULFATE 4 MG/ML INJ (FOR IV/IM USE) IV PRN (16:35)
[2024-12-28 20:00] VITALS: BP 120/97; PULSE 116; RESP 18; TEMP 36.8; O2SAT 96
[2024-12-29] VITALS (32 sets, daily range): BP systolic 113–155; BP diastolic 56–131; PULSE 77–99; RESP 18–37; TEMP 36.6–37.3; O2SAT 92–100
[2024-12-29] MEDS ORDERED: NON FORMULARY MED XX SCH (09:30)
[2024-12-29] MEDS ORDERED: HYDRALAZINE 20MG/ML VIAL IV PRN (09:45)
[2024-12-29] MEDS: SODIUM CHLORIDE 0.9% IV SCH (11:24)
[2024-12-29] MEDS: LACOSAMIDE IV SCH (11:24)
[2024-12-29 12:29] LABS: BG BASE EXCESS -1.2 mmol/L (-2.0-3.0); BG CARBOXYHEMOGLOBIN 0.1 % (0.5-1.5); BG DEOXYHEMOGLOBIN 2.1 % (0.0-5.0); BG FRACTION INSPIRED OXYGEN 32; BG HCO3 ACT 22.6 mmol/L (21.0-28.0); BG OXYGEN SATURATION 97.9 % (94.0-98.0); BG OXYHEMOGLOBIN 97.8 % (94.0-98.0); BG PCO2 34.6 mmHg (32.0-45.0); BG PH 7.433 (7.350-7.450); BG PO2 105.5 mmHg (83.0-108.0); BG SAMPLE SITE RIGHT RADIAL; BG TOTAL HEMOGLOBIN 11.3 g/dL (12.0-16.0); BG VENT MODE NASAL CANNULA
[2024-12-29 13:01] LABS: HEMATOCRIT 30.3 % (36.0-48.0); HEMOGLOBIN 10.3 g/dL (12.0-16.0); MEAN CORPUSCULAR HEMOGLOBIN 29.7 pg (28.0-32.0); MEAN CORPUSCULAR HGB CONC 34.2 g/dL (31.0-37.0); MEAN CORPUSCULAR VOLUME 86.8 fL (81.0-99.0); PLATELET 371 x1000/uL (130-400); RED BLOOD CELL COUNT 3.49 mill/uL (4.2-5.4); RED CELL DISTRIBUTION WIDTH 13.9 % (11.6-14.6); WHITE BLOOD COUNT 13.5 x1000/uL (4.5-11.0)
[2024-12-29 13:20] LABS: CARBON DIOXIDE 23 mEq/L (21-32); CHLORIDE 105 mEq/L (98-107); POTASSIUM 3.4 mEq/L (3.5-5.1); SODIUM 139 mEq/L (136-145)
[2024-12-29 13:21] LABS: CALCIUM 8.8 mg/dL (8.7-10.4)
[2024-12-29 13:26] LABS: CREATININE 0.4 mg/dL (0.6-1.0); GLUCOSE 105 mg/dL (70-105); UREA NITROGEN BLOOD 9 mg/dL (9-23)
[2024-12-29 13:28] LABS: ALANINE AMINOTRANSFERASE 13 IU/L (10-49); ALBUMIN 3.7 g/dL (3.2-4.8); ASPARTATE AMINOTRANSFERASE 21 IU/L (<34); BILIRUBIN TOTAL 0.5 mg/dL (0.1-1.0); PROTEIN TOTAL 6.8 g/dL (6.0-8.3)
[2024-12-29 14:11] LABS: TROPONIN I HIGH SENSITIVITY 43 ng/L (3.0-34)
[2024-12-29] MEDS: KCL 20MEQ/100ML PREMIX 100 ML IV SCH (15:42)
[2024-12-29] MEDS: FUROSEMIDE 20MG/2ML VIAL IVP SCH (15:42)
[2024-12-29] MEDS ORDERED: PIPERACILLIN/TAZO 3.375G/50ML 50 ML IV SCH (22:00)
[2024-12-31] MEDS ORDERED: LACOSAMIDE 100MG TABLET PO SCH (09:00)
== END 2024-12-29 18:42 | disposition short-term general hospital (02) | DRG 64 ==
LOC: EDBEDREQ 00:44 → ER 01:09 → 7WST 03:15 → EDBEDREQ 03:18 → ENRESERV 03:41 → CVICU 12-29 11:13
PROVIDERS: ADMIT Internal Medicine; ATTEND Internal Medicine
PROC: 4A00X4Z Measurement of Central Nervous Electrical Activity, External Approach (ICD-10-PCS; principal; 2024-12-26)
DX: I63.9 Cerebral infarction, unspecified (principal); J96.91 Respiratory failure, unspecified with hypoxia; G81.94 Hemiplegia, unspecified affecting left nondominant side; I10 Essential (primary) hypertension; E78.5 Hyperlipidemia, unspecified; G40.909 Epilepsy, unspecified, not intractable, without status epilepticus; R47.89 Other speech disturbances; R29.703 NIHSS score 3; Z79.02 Long term (current) use of antithrombotics/antiplatelets; Z79.82 Long term (current) use of aspirin; Z79.899 Other long term (current) drug therapy
CPT/HCPCS: 36415; 36600; 70496; 70498; 70551; 71045; 80048; 80053; 80061; 80320; 80339; 82375; 82550; 82805; 82962; 83036; 83880; 84443; 84484; 85025; 85027; 86850; 86900; 92523; 92610; 93005; 93306; 93970; 95816; 97112; 97162; 97166; 99285; A4606; J1650; J1940; J1953; J2060; J2270; J2470; J3480; J3490; J7030; Q9967; G0480